=== PATIENT | female | born 1940 | race Caucasian/White ===

== ENCOUNTER 2018-11-08 11:43 | Emergency (ER) | payer MEDICARE, BC ==
[2018-11-08 12:18] LABS: Hematocrit 41 % (35-47); Hemoglobin 13.8 g/dL (12.0-16.0); Mean Corpuscular HGB Conc 34 g/dL (31-36); Mean Corpuscular Hemoglobin 32 pg (27-31); Mean Corpuscular Volume 93 fL (80-97); Mean Platelet Volume 7.5 fL (7.4-10.4); Platelet Count 329 10^3/uL (150-450); Red Blood Count 4.38 10^6 /uL (3.70-4.87); Red Cell Distribution Width 13 % (10-15); White Blood Count 12.6 10^3/uL (3.5-10.8)
[2018-11-08 12:37] LABS: Albumin 4.5 g/dL (3.2-5.2); Albumin/Globulin Ratio 1.6 (1-3); BUN/Creatinine Ratio 28.3 (8-20); EGFR African American 135.7 (>60); EGFR Non-African American 112.2 (>60); Globulin 2.8 g/dL (2-4); Potassium 3.4 mmol/L (3.5-5.0); Total Bilirubin 0.5 mg/dL (0.2-1.0); Total Protein 7.3 g/dL (6.4-8.9)
--- NOTE | 2018-11-08 12:38 | ED ---
Psychiatric Complaint - HPI Summary HPI Summary: This patient is a 78 year old F presenting to [facility] accompanied by and daughter with a chief complaint of intermittent episodes increased anxiety and depression. Pt is tired and would like to leave. Pt reports she is in no danger of hurting herself, or anyone else, and feels as if she is isolating herself. 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 Pt is on Prozac, neurontin, cipro. Recently had Diverticulosis. Pt reports dysuria. Pt denies any fever, chills, erythema of eyes, sore throat, CP, SOB, cough, abdominal pain, N/V, hematuria, myalgia, edema, rash, or dizziness - History Of Current Complaint Chief Complaint: EDMentalHealth Time Seen by Provider: 11/08/18 11:57 Hx Obtained From: Patient Onset/Duration: Gradual Onset, Lasting Days Timing: Intermittent Episode Lasting Character: Depressed, Anxious Associated Signs And Symptoms: Positive: Social Isolation - Allergies/Home Medications Allergies/Adverse Reactions: Allergies Allergy/AdvReac Type Severity Reaction Status Date / Time chamomile flower Allergy Unknown Verified 11/08/18 12:01 Reaction Details ibuprofen Allergy Swelling Verified 11/08/18 12:01 Of Face,Lips,& Throat nitrofurantoin Allergy Swelling Verified 11/08/18 12:01 [From Macrodantin] Of Face,Lips,& Throat ENVIRONMENTAL/SEASONAL Allergy SINUS Uncoded 11/07/14 10:51 PROBLEMS zomax Allergy swollen Uncoded 11/07/14 10:51 tongue Home Medications: Home Medications ALPRAZolam TAB* [Xanax TAB*] 0.0625 mg PO Q6H PRN 11/08/18 [History Confirmed ] Acetaminophen [Acetaminophen Extra Strength] 1,000 mg PO TID PRN 11/08/18 [ History Confirmed 11/08/18] Cholecalciferol TAB* [Vitamin D TAB*] 400 unit PO DAILY 11/08/18 [History Confirmed 11/08/18] Gabapentin CAP(*) [Neurontin 300 CAP(*)] 600 mg PO QPM 11/08/18 [History Confirmed 11/08/18] PMH/Surg Hx/FS Hx/Imm Hx Endocrine/Hematology History: Denies: Hx Diabetes, Hx Thyroid Disease Cardiovascular History: Reports: Other Cardiovascular Problems/Disorders - 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 Denies: Hx Hypertension, Hx Pacemaker/ICD Respiratory History: Denies: Hx Asthma, Hx Chronic Obstructive Pulmonary Disease (COPD) GI History: Reports: Other GI Disorders - DIVERTICULITIS// STATES HAS HAD RECENT CONSTIPATION BECAUSE OF PREDNISONE Denies: Hx Ulcer Musculoskeletal History: Reports: 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, Hx Osteoporosis Sensory History: Reports: Hx Cataracts, Hx Contacts or Glasses - GLASSES Denies: Hx Hearing Aid Opthamlomology History: Reports: Hx Cataracts, Hx Contacts or Glasses - GLASSES Neurological History: Reports: Other Neuro Impairments/Disorders - HX OF VERTIGO X 1- 09/21/2014, PASSED NO PROBLEMS SINCE Psychiatric History: Denies: Hx Panic Disorder - Cancer History Hx Chemotherapy: No Hx Radiation Therapy: No - Surgical History Surgery Procedure, Year, and Place: APPENDECTOMY AGE 11TONSILLECTOMY AGE [age] RIGHT BREAST BIOPSY - BENIGN, [id number] LEFT EYE CATARACT EXTRACTION WITH IOL IMPLANT, [id number] LEFT KNEE ARTHROSCOPIC SURGERY, NAT0125 COLONOSCOPY, [facility] [place]. RIGHT TEMPORAL ARTERY BIOPSY- SCHWED-OFFICE Hx Anesthesia Reactions: No Infectious Disease History: No Infectious Disease History: Reports: History Other Infectious Disease - lyme Denies: Hx Clostridium Difficile, Hx Hepatitis, Hx Human Immunodeficiency Virus (HIV), Hx of Known/Suspected MRSA, Hx Shingles, Hx Tuberculosis, Traveled Outside the [place] in Last 30 Days - Social History Occupation: Retired Lives: With Family Alcohol Use: Rare Hx Substance Use: No Substance Use Type: Reports: None Smoking Status (MU): Never Smoked Tobacco Review of Systems Negative: Fever, Chills Negative: Erythema Negative: Sore Throat Negative: Chest Pain Negative: Shortness Of Breath, Cough Negative: Abdominal Pain, Vomiting, Nausea Positive: burning, dysuria. Negative: hematuria Negative: Myalgia, Edema Negative: Rash Positive: Anxious, Depressed All Other Systems Reviewed And Are Negative: Yes Physical Exam - Summary Physical Exam Summary: Constitutional: Well-developed, Well-nourished, Alert. (-) Distressed Skin: Warm, Dry HENT: Normocephalic; Atraumatic Eyes: Conjunctiva normal Neck: Musculoskeletal ROM normal neck. (-) JVD, (-) Stridor, (-) Tracheal deviation Cardio: Rhythm regular, rate normal, Heart sounds normal; Intact distal pulses; The pedal pulses are 2+ and symmetric. Radial pulses are 2+ and symmetric. (-) Murmur Pulmonary/Chest wall: Effort normal. (-) Respiratory distress, (-) Wheezes, (-) Rales Abd: Soft, (-) tenderness, (-) Distension, (-) Guarding, (-) Rebound Musculoskeletal: (-) Edema Lymph: (-) Cervical adenopathy Neuro: Alert, Oriented x3 Psych: Anxious Triage Information Reviewed: Yes Vital Signs On Initial Exam: Initial Vitals Temp Pulse Resp BP Pulse Ox 98.6 F 84 18 172/90 99 11/08/18 11:47 11/08/18 11:47 11/08/18 11:47 11/08/18 11:47 11/08/18 11:47 Vital Signs Reviewed: Yes Diagnostics - Vital Signs Vital Signs Temp Pulse Resp BP Pulse Ox 11/08/18 11:47 98.6 F 84 18 172/90 99 - Laboratory Lab Results: Lab Results 11/08/18 Range/Units 12:04 WBC 12.6 H (3.5-10.8) 10^3/uL RBC 4.38 (3.70-4.87) 10^6 /uL Hgb 13.8 (12.0-16.0) g/dL Hct 41 (35-47) % MCV 93 (80-97) fL MCH 32 H (27-31) pg MCHC 34 (31-36) g/dL RDW 13 (10-15) % Plt Count 329 (150-450) 10^3/uL MPV 7.5 (7.4-10.4) fL Result Diagrams: 11/08/18 12:04 11/08/18 12:04 Lab Statement: Any lab studies that have been ordered have been reviewed, and results considered in the medical decision making process. Course/Dx - Course Course Of Treatment: This patient is a 78 year old F presenting to [facility] accompanied by and daughter with a chief complaint of intermittent episodes increased anxiety and depression. Pt reports she is in no danger of hurting herself, or anyone else, and feels as if she is isolating herself. 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 Pt is on Prozac, neurontin, cipro. Recently had Diverticulosis. Physical Exam is normal except she is Anxious appearing. Blood work obtained. Sodium is 129, potassium is 3.4, chloride is 95 , BUN/Creatinine Ratio is 28.3, Glucose is 113, Alkaline Phosphatase is 107. UA obtained. Mental Health child custody evaluator discharged pt. Discharge - Sign-Out/Discharge Documenting (check all that apply): Patient Departure - Discharge Patient Received Moderate/Deep Sedation with Procedure: No - Discharge Plan Condition: Stable Disposition: HOME Referrals: Fransisca Horvath MD [Primary Care Provider] - Leander MÁRQUEZ,Cely Liu [Medical Doctor] - (Please follow up with your scheduled appointment next week) - Attestation Statements Document Initiated by Scribe: Yes Documenting Scribe: Vika You Provider For Whom Scribe is Documenting (Include Credential): Dr. Kirk Chapman MD Scribe Attestation: Vika Wilson scribed for Dr. Kirk Chapman MD on 11/08/18 at 1648. Status of Scribe Document: Ready
[2018-11-08 12:54] LABS: TSH (Thyroid Stimulating Horm) 1.03 mcIU/mL (0.34-5.60)
[2018-11-08 12:56] LABS: Free T4 0.91 ng/dL (0.61-1.12)
[2018-11-08 13:36] LABS: Urine Bacteria Absent (Absent); Urine Red Blood Cell Absent (Absent); Urine White Blood Cell Trace(0-5/hpf) (Absent)
[2018-11-08 15:05] LABS: Urine Appearance Clear; Urine Bilirubin Negative (Negative); Urine Blood 2+ (Negative); Urine Color Yellow; Urine Glucose Negative (Negative); Urine Ketones Negative (Negative); Urine Nitrite Negative (Negative); Urine Protein Negative (Negative); Urine Specific Gravity 1.012 (1.010-1.030); Urine Squamous Epithelial Cell Present (Absent); Urine Urobilinogen Negative (Negative)
[2018-11-08 15:23] VITALS: BP 149/87
--- NOTE | 2018-11-09 12:07 | PN ---
ED Psychiatric Progress Note Date of Service: 11/08/18 Subjective: 78 y.o. white female with a history of anxiety presents with her and daughter complaining of severe anxiety and passive SI. 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 She is burned out and suffering from increasing symptoms of anxiety, depressed mood, anhedonia, sleeplessness, worthlessness, hopelessness, lethargy, appetite disturbance with unintentional 10lb weight loss and SI. She is taking fluoxetine as prescribed by her outpatient primary care provider with the dose having recently been increased from 10 to 15mg. She has an intake with outpatient psychiatrist Cely Tabor scheduled for next week. When offered voluntary inpatient psychiatric hospitalization she hesitates but ultimately chooses respite at her daughter's local bed and breakfast residence. She contracts for safety and will f/u with this clinician tomorrow here at the hospital. Objective: slender, aging, white-haired female sitting on the ED bed; upset but cooperative with exam; some hyperkinesis noted; depressed and anxious with constricted, anxious affect; thought process is circumstantial; thought content is self-deprecatory; she has passive SI but no HI; insight seems fair Assessment: Major Depression Plan: Plan is to go to daughter's bed and breakfast for respite. She is to continue current fluoxetine dose and return tomorrow (11/09) at 14:00 to f/u with this clinician. In the absence of improvement she may require voluntary hospitalization either here or in [place], where her son resides. Vital Signs Temp Pulse Resp BP Pulse Ox 98.6 F 82 18 149/87 98 11/08/18 15:22 11/08/18 15:22 11/08/18 15:22 11/08/18 15:22 11/08/18 15:22 Lab Results - Entire Visit 11/08/18 11/08/18 11/08/18 13:13 12:04 12:04 WBC 12.6 H RBC 4.38 Hgb 13.8 Hct 41 MCV 93 MCH 32 H MCHC 34 RDW 13 Plt Count 329 MPV 7.5 Sodium 129 L Potassium 3.4 L Chloride 95 L Carbon Dioxide 27 Anion Gap 7 BUN 15 Creatinine 0.53 Est GFR ( Amer) 135.7 Est GFR (Non-Af Amer) 112.2 BUN/Creatinine Ratio 28.3 H Glucose 113 H Calcium 10.0 Total Bilirubin 0.50 AST 24 ALT 19 Alkaline Phosphatase 107 H Total Protein 7.3 Albumin 4.5 Globulin 2.8 Albumin/Globulin Ratio 1.6 TSH 1.03 Free T4 0.91 Urine Color Yellow Urine Appearance Clear Urine pH 6.0 Ur Specific [place] 1.012 Urine Protein Negative Urine Ketones Negative Urine Blood 2+ A Urine Nitrate Negative Urine Bilirubin Negative Urine Urobilinogen Negative Ur Leukocyte Esterase Negative Urine WBC (Auto) Trace(0-5/hpf) Urine RBC (Auto) Absent Ur Squamous Epith Cells Present A Urine Bacteria Absent Urine Glucose Negative Urine Ascorbic Acid Not Reportable
--- NOTE | 2018-11-10 09:13 | PN ---
ED Psychiatric Progress Note Date of Service: 11/09/18 Subjective: 78 y.o. white female with a history of anxiety returns to hospital on , again accompanied by her and daughter, complaining of severe anxiety and passive SI. 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 She went to stay at her daughter's bed and breakfast. Unfortunately, she was anxious and agitated throughout the night, not sleeping and not feeling safe. I've spoken with her family, including her son Lon, who resides in [place], [place], and they are hopeful that the patient can get into treatment at [facility] near [place]. The patient is agreeable with this. I understand that [facility] has expressed some concerns about the patient's medical fitness to travel and receive behavioral care in a freestanding psychiatric facility. Their specific concerns are about the patient's pulse, her elevated WBC count, and a complaint of dysurea to the ED physician yesterday. Mirta denies dysurea symptoms at this time. I looked at her urinalysis, which was positive for 2+ blood but otherwise demonstrated no evidence of bacturia, elevated urine WBC's or elevated leukocyte esterase. A urine culture is not medically indicated. Her pulse was 82 and 84, demonstrating no tachycardia. Her sodium was slightly low at 129 and chloride low at 95. She was advised to eat a salty snack such as pretzels which should be sufficient to correct these minor deficiencies. Objective: slender, aging, white-haired female sitting on the ED bed; upset but cooperative with exam; some hyperkinesis noted; depressed and anxious with constricted, anxious affect; thought process is circumstantial; thought content is self-deprecatory; she has passive SI but no HI; insight seems fair Assessment: Major Depressive DO, single episode, severe Plan: Plan is to go to have patient's son, Madhav, come from [place] and pick her up to take her to [place] to receive care at [facility]. The patient is medically cleared to receive services at a freestanding psychiatric facility. Vital Signs Temp Pulse Resp BP Pulse Ox 98.6 F 82 18 149/87 98 11/08/18 15:22 11/08/18 15:22 11/08/18 15:22 11/08/18 15:22 11/08/18 15:22 Lab Results - Entire Visit 11/08/18 11/08/18 11/08/18 13:13 12:04 12:04 WBC 12.6 H RBC 4.38 Hgb 13.8 Hct 41 MCV 93 MCH 32 H MCHC 34 RDW 13 Plt Count 329 MPV 7.5 Sodium 129 L Potassium 3.4 L Chloride 95 L Carbon Dioxide 27 Anion Gap 7 BUN 15 Creatinine 0.53 Est GFR ( Amer) 135.7 Est GFR (Non-Af Amer) 112.2 BUN/Creatinine Ratio 28.3 H Glucose 113 H Calcium 10.0 Total Bilirubin 0.50 AST 24 ALT 19 Alkaline Phosphatase 107 H Total Protein 7.3 Albumin 4.5 Globulin 2.8 Albumin/Globulin Ratio 1.6 TSH 1.03 Free T4 0.91 Urine Color Yellow Urine Appearance Clear Urine pH 6.0 Ur Specific [place] 1.012 Urine Protein Negative Urine Ketones Negative Urine Blood 2+ A Urine Nitrate Negative Urine Bilirubin Negative Urine Urobilinogen Negative Ur Leukocyte Esterase Negative Urine WBC (Auto) Trace(0-5/hpf) Urine RBC (Auto) Absent Ur Squamous Epith Cells Present A Urine Bacteria Absent Urine Glucose Negative Urine Ascorbic Acid Not Reportable
== END 2018-11-08 15:22 | disposition home or self-care (01) ==
LOC: ED 11:43
DX: F41.9 Anxiety disorder, unspecified (principal); F32.9 Major depressive disorder, single episode, unspecified; I44.7 Left bundle-branch block, unspecified; Z88.1 Allergy status to other antibiotic agents; Z88.8 Allergy status to other drugs, medicaments and biological substances; Z79.899 Other long term (current) drug therapy
CPT/HCPCS: 36415; 80053; 81003; 81015; 84439; 84443; 85027; 87086; 99283

== ENCOUNTER 2021-08-05 15:13 | Inpatient (IN) ==
[2021-08-05 16:51] LABS: ABS Lymphocytes 1.2 10^3/ul (1.0-4.8); ABS Monocytes 0.6 10^3/ul (0-0.8); ABS Neutrophils 6.5 10^3/ul (1.5-7.7); Eosinophil % 0.6 %; Hematocrit 36 % (35-47); Hemoglobin 12.8 g/dL (12.0-16.0); Lymphocyte % 14.2 %; Mean Corpuscular HGB Conc 36 g/dL (31-36); Mean Corpuscular Hemoglobin 32 pg (27-31); Mean Corpuscular Volume 91 fL (80-97); Mean Platelet Volume 7.9 fL (7.4-10.4); Platelet Count 234 10^3/uL (150-450); Red Blood Count 3.96 10^6 /uL (3.70-4.87); Red Cell Distribution Width 14 % (10-15); White Blood Count 8.4 10^3/uL (3.5-10.8)
[2021-08-05 16:53] LABS: Urine Appearance Cloudy; Urine Bilirubin Negative (Negative); Urine Blood 1+ (Negative); Urine Color Yellow; Urine Glucose Negative (Negative); Urine Ketones Negative (Negative); Urine Nitrite Negative (Negative); Urine Protein Negative (Negative); Urine Specific Gravity 1.012 (1.002-1.030); Urine Urobilinogen Negative (Negative)
[2021-08-05 16:56] LABS: Urine Amorphous Crystals Present (Absent); Urine Bacteria Absent (Absent); Urine Red Blood Cell 2+(6-10/hpf) (Absent); Urine White Blood Cell Absent (Absent)
[2021-08-05 17:12] LABS: Urine Benzodiazepine Screen None Detected (None Detect); Urine Cannabinoids Screen None Detected (None Detect); Urine Opiates Screen None Detected (None Detect)
[2021-08-05 17:17] LABS: ALT 12 U/L (7-52); AST 17 U/L (13-39); Acetaminophen < 15 mcg/mL; Albumin 4.6 g/dL (3.2-5.2); Alcohol, S < 13 mg/dL (<13); Alkaline Phosphatase 99 U/L (35-149); Anion Gap 8 mmol/L (2-11); Blood Urea Nitrogen 15 mg/dL (6-24); CO2 Carbon Dioxide 26 mmol/L (22-32); Calcium 9.8 mg/dL (8.6-10.3); Chloride 98 mmol/L (101-111); Globulin 2.3 g/dL (2-4); Glucose 99 mg/dL (70-100); Potassium 4.3 mmol/L (3.5-5.0); Salicylate < 2.50 mg/dL (<30); Sodium 132 mmol/L (135-145); Total Protein 6.9 g/dL (6.4-8.9); eGFR CKD-EPI 96.9 (>60)
[2021-08-06] MEDS ORDERED: Al Hydrox/Mg Hydrox/Simet LIQ 30 ML UDC PO PRN (02:04)
[2021-08-06] MEDS: Vitamin THERAPEUTIC TAB PO SCH (08:35)
[2021-08-06] MEDS ORDERED: NS 0.9% 1000 ml BAG 1,000 ML IV ONE (14:00)
[2021-08-06] MEDS ORDERED: Witch Hazel PAD JAR TOPICAL PRN (14:31)
[2021-08-07] MEDS: Vitamin THERAPEUTIC TAB PO SCH (07:14)
[2021-08-07 07:56] LABS: HDL Cholesterol 68.6 mg/dL
[2021-08-07] MEDS: Cholecalciferol (VIT D3) 1,000 unit TAB PO SCH (12:19)
[2021-08-08] MEDS: Cholecalciferol (VIT D3) 1,000 unit TAB PO SCH (08:19)
[2021-08-08 12:03] LABS: Urine Appearance Clear; Urine Bilirubin Negative (Negative); Urine Blood 1+ (Negative); Urine Color Yellow; Urine Glucose Negative (Negative); Urine Ketones Negative (Negative); Urine Nitrite Negative (Negative); Urine Protein Negative (Negative); Urine Specific Gravity 1.011 (1.002-1.030); Urine Urobilinogen Negative (Negative)
[2021-08-08 12:20] LABS: Urine Bacteria Absent (Absent); Urine Red Blood Cell 1+(3-5/hpf) (Absent); Urine White Blood Cell Absent (Absent)
[2021-08-08] MEDS: Vitamin THERAPEUTIC TAB PO SCH (13:55)
[2021-08-09] MEDS: Vitamin THERAPEUTIC TAB PO SCH (07:42)
[2021-08-09 08:18] LABS: Albumin/Globulin Ratio 1.8 (1-3); Calcium 9.9 mg/dL (8.6-10.3); Globulin 2.2 g/dL (2-4); Potassium 4.5 mmol/L (3.5-5.0); Total Bilirubin 0.5 mg/dL (0.2-1.0); Total Protein 6.2 g/dL (6.4-8.9); eGFR CKD-EPI 96.4 (>60)
[2021-08-09] MEDS: Cholecalciferol (VIT D3) 1,000 unit TAB PO SCH (10:54)
[2021-08-09 15:27] LABS: Folate 13.62 ng/mL (5.90-24.80)
[2021-08-10] MEDS: Vitamin THERAPEUTIC TAB PO SCH (09:10)
[2021-08-10] MEDS: Cholecalciferol (VIT D3) 1,000 unit TAB PO SCH (09:10)
[2021-08-11] MEDS: Cholecalciferol (VIT D3) 1,000 unit TAB PO SCH (07:48)
[2021-08-11] MEDS: Vitamin THERAPEUTIC TAB PO SCH (13:32)
[2021-08-12] MEDS: Cholecalciferol (VIT D3) 1,000 unit TAB PO SCH (12:29)
[2021-08-12] MEDS: Vitamin THERAPEUTIC TAB PO SCH (12:29)
[2021-08-13] MEDS: Cholecalciferol (VIT D3) 1,000 unit TAB PO SCH (11:22)
[2021-08-13] MEDS: Vitamin THERAPEUTIC TAB PO SCH (11:23)
[2021-08-14 09:13] VITALS: BP 143/60
[2021-08-14] MEDS: Cholecalciferol (VIT D3) 1,000 unit TAB PO SCH (09:18)
[2021-08-14] MEDS: Vitamin THERAPEUTIC TAB PO SCH (09:18)
== END 2021-08-14 11:30 | disposition home or self-care (01) | DRG 885 ==
LOC: ED 15:13 → BSU 23:15
PROVIDERS: ADMIT Psychiatry & Neurology Psychiatry; ATTEND Psychiatry & Neurology Psychiatry

== ENCOUNTER 2021-11-12 13:19 | Inpatient (IN) ==
[2021-11-12 15:51] LABS: ABS Lymphocytes 1.3 10^3/ul (1.0-4.8); ABS Monocytes 0.6 10^3/ul (0-0.8); ABS Neutrophils 5.9 10^3/ul (1.5-7.7); Eosinophil % 0.6 %; Hematocrit 37 % (35-47); Hemoglobin 12.2 g/dL (12.0-16.0); Lymphocyte % 16.4 %; Mean Corpuscular HGB Conc 33 g/dL (31-36); Mean Corpuscular Hemoglobin 31 pg (27-31); Mean Corpuscular Volume 93 fL (80-97); Mean Platelet Volume 7.4 fL (7.4-10.4); Nucleated Red Blood Cells % 0.1; Platelet Count 217 10^3/uL (150-450); Red Blood Count 3.96 10^6 /uL (3.70-4.87); Red Cell Distribution Width 14 % (10-15); White Blood Count 7.9 10^3/uL (3.5-10.8)
[2021-11-12 16:02] LABS: Urine Appearance Clear; Urine Color Yellow; Urine Ketones Negative (Negative); Urine Urobilinogen 1.0 (Negative) (Negative)
[2021-11-12 16:03] LABS: Urine Bilirubin Negative (Negative); Urine Blood Trace (Intact) (Negative); Urine Glucose Negative (Negative); Urine Nitrite Negative (Negative); Urine Protein Negative (Negative)
[2021-11-12 16:24] LABS: Albumin 4.2 g/dL (3.2-5.2); Albumin/Globulin Ratio 1.8 (1-3); Calcium 9.6 mg/dL (8.6-10.3); Globulin 2.3 g/dL (2-4); Potassium 4.1 mmol/L (3.5-5.0); Total Bilirubin 0.5 mg/dL (0.2-1.0); Total Protein 6.5 g/dL (6.4-8.9); eGFR CKD-EPI 92.8 (>60)
[2021-11-12 16:28] LABS: Urine Bacteria 1+ (Absent); Urine Red Blood Cell Trace(0-2/hpf) (Absent); Urine White Blood Cell Trace(0-5/hpf) (Absent)
[2021-11-13] MEDS ORDERED: Al Hydrox/Mg Hydrox/Simet LIQ 30 ML UDC PO PRN (01:15)
[2021-11-13] MEDS: Vitamin THERAPEUTIC TAB PO SCH (08:23)
[2021-11-14] MEDS: Vitamin THERAPEUTIC TAB PO SCH (08:23)
[2021-11-15] MEDS: Vitamin THERAPEUTIC TAB PO SCH (08:58)
[2021-11-15] MEDS ORDERED: Polyethylene Glycol 3350 17 GM PACKET PO PRN (12:56)
[2021-11-15] MEDS: Witch Hazel PAD JAR TOPICAL SCH (14:21)
[2021-11-16] MEDS: Vitamin THERAPEUTIC TAB PO SCH ×2 (07:34→07:44)
[2021-11-16] MEDS: Witch Hazel PAD JAR TOPICAL SCH (09:10)
[2021-11-17] MEDS: Vitamin THERAPEUTIC TAB PO SCH (08:54)
[2021-11-17] MEDS: Witch Hazel PAD JAR TOPICAL SCH (08:55)
[2021-11-18] MEDS: Vitamin THERAPEUTIC TAB PO SCH (08:38)
[2021-11-18] MEDS: Witch Hazel PAD JAR TOPICAL SCH (12:50)
[2021-11-19] MEDS: Vitamin THERAPEUTIC TAB PO SCH (07:55)
[2021-11-19] MEDS: Witch Hazel PAD JAR TOPICAL SCH (07:55)
[2021-11-19] MEDS ORDERED: Witch Hazel PAD JAR TOPICAL PRN (22:10)
[2021-11-20] MEDS: Vitamin THERAPEUTIC TAB PO SCH (10:44)
[2021-11-21] MEDS: Vitamin THERAPEUTIC TAB PO SCH (08:46)
[2021-11-22] MEDS: Vitamin THERAPEUTIC TAB PO SCH ×2 (08:54→09:02)
[2021-11-23] MEDS: Vitamin THERAPEUTIC TAB PO SCH (07:23)
[2021-11-24] MEDS: Vitamin THERAPEUTIC TAB PO SCH ×2 (07:58→09:49)
[2021-11-25] MEDS: Vitamin THERAPEUTIC TAB PO SCH (08:11)
[2021-11-26] MEDS: Vitamin THERAPEUTIC TAB PO SCH (07:36)
[2021-11-27 07:30] VITALS: BP 140/67
[2021-11-27] MEDS: Vitamin THERAPEUTIC TAB PO SCH (07:43)
== END 2021-11-27 16:00 | disposition home health service (06) | DRG 885 ==
LOC: ED 13:19 → BSU 11-13 02:33
PROVIDERS: ADMIT Psychiatry & Neurology Psychiatry; ATTEND Psychiatry & Neurology Psychiatry